=== PATIENT | male | born 1985 | race American Indian/Alaskan Native ===

== ENCOUNTER 2017-08-20 10:01 | Emergency (ER) | payer SELFPAY ==
[2017-08-20 11:13] LABS: Basophils # (Auto) 0.1 K/mm3 (0.0-0.1); Basophils % (Auto) 0.6 % (0.0-1.8); Eosinophils # (Auto) 0.1 K/mm3 (0.0-0.4); Eosinophils % (Auto) 0.8 % (0.0-4.3); Hematocrit 44.6 % (35.5-45.6); Hemoglobin 14.5 gm/dl (11.8-15.2); Lymphocytes # (Auto) 2.1 K/mm3 (1.2-5.4); Lymphocytes % (Auto) 17.8 % (13.4-35.0); Mean Corpuscular HGB Conc 33 % (32-34); Mean Corpuscular Hemoglobin 29 pg (28-32); Mean Corpuscular Volume 89 fl (84-94); Monocytes # (Auto) 0.9 K/mm3 (0.0-0.8); Monocytes % (Auto) 7.4 % (0.0-7.3); Platelet Count 258 K/mm3 (140-440); Red Blood Count 5.02 M/mm3 (3.65-5.03)
[2017-08-20 11:30] LABS: BUN/Creatinine Ratio 11; Blood Urea Nitrogen 9 mg/dL (9-20); Hemolysis Index 9
[2017-08-20] MEDS ORDERED: ROCEPHIN IM ONE (14:57)
[2017-08-20] MEDS ORDERED: ZITHROMAX PO ONE (14:57)
[2017-08-20] MEDS ORDERED: XYLOCAINE 1% MPF 5 mL INFILTRATI ONE (14:57)
[2017-08-20 15:04] LABS: Bilirubin,Urine NEG (Negative); Blood,Urine SM (Negative); Color,Urine Yellow (Yellow); Mucus,Urine 3+ /HPF; Nitrite,Urine NEG (Negative); Protein,Urine <15 mg/dL mg/dL (Negative)
[2017-08-20] MEDS ORDERED: TYLENOL PO ONE (15:19)
--- NOTE | 2017-08-20 16:01 | Emergency Department Report ---
ED Male HPI - General Chief complaint: Urogenital-Male Stated complaint: BLOOD IN URINE Time Seen by Provider: 08/20/17 14:53 Source: patient Mode of arrival: Ambulatory Limitations: No Limitations - History of Present Illness Initial comments: 31-year-old male past medical history smoker, ? Hypertension presents with complaint of dysuria and urethral burning for approximately 1.5 weeks. Patient states that he was informed by sex partner that he was exposed to an STD. Patient is not sure what type of STD it is but does endorse yellowish whitish penile discharge and burning with urination. Patient denies any genitourinary discharge abdominal pain testicular pain or swelling. Patient is awake alert and oriented 3 fully lucid not in acute distress. Nontoxic appearing. Patient states he is unclear if he has hypertension is not currently on any hypertension medicines. Does have a family history of hypertension. Denies chest pain palpitations shortness of breath headache lightheadedness nausea abdominal pain of her location of any paresthesias or generalized weakness. MD Complaint: penile discharge, dysuria Onset/Timin -: week(s) Location: penis Radiation: none Severity: moderate Worsens with: urination discharge, dysuria - Related Data Sexually active: Yes Allergies Allergy/AdvReac Type Severity Reaction Status Date / Time No Known Allergies Allergy Unverified 08/20/17 10:53 ED Review of Systems ROS: Stated complaint: BLOOD IN URINE Other details as noted in HPI Constitutional: denies: chills, fever Eyes: denies: eye pain, eye discharge, vision change ENT: denies: ear pain, throat pain Respiratory: denies: cough, shortness of breath, wheezing Cardiovascular: denies: chest pain, palpitations Endocrine: no symptoms reported Gastrointestinal: denies: abdominal pain, nausea, diarrhea Genitourinary: dysuria, discharge. denies: urgency Musculoskeletal: denies: back pain, joint swelling, arthralgia Skin: denies: rash, lesions Neurological: denies: headache, weakness, paresthesias Psychiatric: denies: anxiety, depression Hematological/Lymphatic: denies: easy bleeding, easy bruising ED Past Medical Hx - Past Medical History Previous Medical History?: Yes Hx Hypertension: Yes (no meds) - Surgical History Past Surgical History?: Yes Additional Surgical History: keloid removed from left ear - Social History Smoking Status: Current Every Day Smoker Substance Use Type: Alcohol, Marijuana ED Physical Exam - General Limitations: No Limitations General appearance: alert, in no apparent distress - Head Head exam: Present: atraumatic, normocephalic - Eye Eye exam: Present: normal appearance, PERRL, EOMI - ENT ENT exam: Present: mucous membranes moist - Neck Neck exam: Present: normal inspection - Respiratory Respiratory exam: Present: normal lung sounds bilaterally. Absent: respiratory distress - Cardiovascular Cardiovascular Exam: Present: regular rate, normal rhythm. Absent: systolic murmur, diastolic murmur, rubs, gallop - GI/Abdominal GI/Abdominal exam: Present: soft (abdomen soft nontender nondistended), normal bowel sounds - Rectal Rectal exam: Present: deferred - exam: Present: normal inspection External exam: Present: normal external exam - Extremities Exam Extremities exam: Present: normal inspection - Back Exam Back exam: Present: normal inspection - Neurological Exam Neurological exam: Present: alert, oriented X3, CN II-XII intact, normal gait - Psychiatric Psychiatric exam: Present: normal affect, normal mood - Skin Skin exam: Present: warm, dry, intact, normal color. Absent: rash ED Course Vital Signs 08/20/17 10:53 Temperature 98.8 F Pulse Rate 109 H Respiratory 16 Rate Blood Pressure 151/102 O2 Sat by Pulse 98 Oximetry ED Medical Decision Making - Lab Data Result diagrams: 08/20/17 11:03 08/20/17 11:03 - Medical Decision Making A/P: Urethritis, possible asymptomatic hypertension 1-patient empirically treated with azithromycin and ceftriaxone for urethritis 2-urinalysis show some leukocytes, GC cultures sent 3-patient given follow-up with primary care. Patient's blood pressure normal before discharge. Patient has no headache, blurry vision, lightheadedness, chest pain, palpitations shortness of breath, palpitations, pleuritic chest pain , abdominal pain nausea vomiting upper/lower extremity paresthesias or lower extremity swelling. I educated the patient on lifestyle modifications for possible hypertension. Patient's blood pressure 135/80 before discharge. As patient has unremarkable vital signs and no clinical signs of hypertension I will refrain from beginning him on an agent and defer management to primary care. I advised patient that it is important to follow up with primary care and have his blood pressure rechecked. Patient agreed to follow up with primary care and monitor his own blood pressure at home. I recommended to patient that he purchase a blood pressure monitor for this purpose, patient stated he would do so. Critical care attestation.: If time is entered above; I have spent that time in minutes in the direct care of this critically ill patient, excluding procedure time. ED Disposition Clinical Impression: Asymptomatic hypertension, Urethritis Disposition: - TO HOME OR SELFCARE Is pt being admited?: No Does the pt Need Aspirin: No Condition: Stable Instructions: Hypertension (ED), Low Sodium Diet (ED), Nonspecific Urethritis in Men (ED) [facility] - 3-5 Days [facility] [Outside] - 3-5 Days PEDRO PABLO STEPHENS MD [Staff Physician] - 3-5 Days Forms: STI Treatment and Prevention, Work/School Release Form(ED) Time of Disposition: 16:23
[2017-08-20 16:36] VITALS: BP 135/80
== END 2017-08-20 16:35 | disposition home or self-care (01) ==
LOC: ED 10:01
DX: N34.2 Other urethritis (principal); I10 Essential (primary) hypertension; F17.200 Nicotine dependence, unspecified, uncomplicated; F12.10 Cannabis abuse, uncomplicated; Z98.890 Other specified postprocedural states
CPT/HCPCS: 36415; 80048; 81001; 82550; 85025; 87591; 96372; 99283; J0696